=== PATIENT | female | born 1965 | race African-American/Black ===

== ENCOUNTER 2024-12-07 06:15 | Inpatient (IN) | payer BC, SELFPAY ==
[2024-12-06 23:47] VITALS: BP 163/95
[2024-12-07] VITALS (27 sets, daily range): BP systolic 97–151; BP diastolic 30–109; BMI 34.5
[2024-12-07] MEDS: TORADOL 15 MG IV (00:04)
[2024-12-07] MEDS: ZOFRAN 4 MG IV (00:04)
[2024-12-07 00:30] LABS: ALT (SGPT) 20 U/L (0-35); AST (SGOT) 24 U/L (14-36); Albumin 4.6 g/dl (3.5-5.0); Alkaline Phosphatase 87 U/L (38-126); Blood Urea Nitrogen 14 mg/dl (7-17); Calcium 9.6 mg/dl (8.4-10.2); Carbon Dioxide 30 mmol/L (22-30); Glucose 123 mg/dl (70-99); Potassium 3.2 mmol/L (3.5-5.1); Sodium 138 mmol/L (135-145); Total Bilirubin 1.2 mg/dl (0.2-1.3); Total Protein 7.7 g/dl (6.3-8.2); eGFR > 60.00
[2024-12-07 00:32] LABS: Hematocrit 37.4 % (37.0-47.0); Hemoglobin 12.3 g/dL (12.0-16.0); Mean Corp Hgb Conc. 32.9 g/dL (33.0-37.0); Mean Corpuscular Hgb 30.5 pg (27.0-31.0); Mean Corpuscular Volume 92.8 fL (81.0-99.0); Mean Platelet Volume 11.5 fL (7.4-10.4); Platelet Count 200 10^3/uL (130-400); Red Blood Cell Count 4.03 10^6/uL (4.20-5.40); Red Cell Dist. Width 12.2 % (11.5-14.5); White Blood Cell Count 5.1 10^3/uL (4.8-10.8)
[2024-12-07 00:34] LABS: Troponin I < 0.012 ng/ml
[2024-12-07 00:35] LABS: Chloride 101 mmol/L (98-107)
--- NOTE | 2024-12-07 02:39 | DOWNTIME ---
There was a [facility] Client [employer] Clerk Downtime on 12/07/2024 from 0100 to 12/07/2023 at 0235 . Downtime documentation of patient's care, including medication administrations, has been reconciled in the electronic record per guidelines. Refer to the
patient's paper chart under the miscellaneous tab to see printed paper medication records and downtime forms.
--- NOTE | 2024-12-07 02:50 | ED.GENMED ---
History of Present Illness
General
Chief Complaint: Chest Pain
Time Seen by Provider: 12/07/24 02:39
History of Present Illness
History of Present Illness:
Patient is a 59-year-old with history of hypertension presenting to the emergency department chest pain.� Patient states the pain started around 11 PM when she was driving to work.� It is midsternal/epigastric that she describes as a cramping
sensation.� He is having some nausea and a mild headache.� The headache did so earlier today.� No diarrhea.� No sick contacts.� No exertional chest pain.� No shortness of breath.� No leg swelling or hemoptysis.� This is never happened to her before.
Phy Exam
Physical Exam
Physical Exam:
GENERAL: in no acute distress
HEENT: normocephalic, extraocular movements intact, moist oral mucosa
NECK: normal inspection
RESPIRATORY: no respiratory distress, clear to auscultation bilaterally
CARDIOVASCULAR: regular rate and rhythm, 2+ radial pulses bilaterally, reproducible midsternal chest wall tenderness
ABDOMEN/: soft, non-distended, non-tender to palpation, no rebound or guarding
EXTREMITIES: non-tender, no edema/swelling
NEUROLOGIC: awake and alert, moves all extremities
SKIN: warm
Scores
Heart Score for Chest Pain Patients
STEMI patient?: Not applicable
Course
Orders/Labs/Results
Orders:
Orders
12/06/24 23:45
EKG [Electrocardiogram (*1)] Urgent
Reason for Study: Chest Pain
EKG- Treatment ONCE
Complete Blood Count/No Diff Urgent
Comprehensive Metabolic Panel Urgent
Troponin I Urgent
12/07/24 00:01
Ketorolac [Toradol] 15 mg .ROUTE .STK-MED ONE
Ondansetron Injectable [Zofran] 4 mg .ROUTE .STK-MED ONE
12/07/24 00:02
Chest [CR Chest - 2 Views ] Urgent
Comment:
Reason For Exam: cp
12/07/24 00:04
Ketorolac [Toradol] 15 mg IV NOW STA
Ondansetron Injectable [Zofran] 4 mg IV NOW STA
12/07/24 02:11
Phenobarb/Hyoscy/Atropine/Scop [] 10 ml .ROUTE .STK-MED ONE
12/07/24 02:12
Mag Hydrox/Al Hydrox/Simeth [Maalox] 30 ml .ROUTE .STK-MED ONE
12/07/24 02:14
Viscous Lidocaine 2% [Xylocaine Viscous Cup] 15 ml .ROUTE .STK-MED ONE
12/07/24 02:40
EKG- Treatment ONCE
12/07/24 03:00
Electrocardiogram (*1) Urgent
Reason for Study: Chest Pain
Troponin I Urgent
12/07/24 03:15
Troponin I Urgent
Abnormal Lab Results
12/07/24
00:05
RBC 4.03 L 10^6/uL
(4.20-5.40)
MCHC 32.9 L g/dL
(33.0-37.0)
MPV 11.5 H fL
(7.4-10.4)
Potassium 3.2 L mmol/L
(3.5-5.1)
Glucose 123 H mg/dl
(70-99)
12/07/24 00:05
12/07/24 00:05
Vital Signs
Initial and Last Documented VS:
Initial Vital Signs
Temp Pulse BP Pulse Ox
97.6 F 58 163/95 100
12/06/24 23:47 12/06/24 23:47 12/06/24 23:47 12/06/24 23:47
Last Documented Vital Signs
Temp Pulse Resp BP Pulse Ox
97.6 F 66 16 137/80 96
12/06/24 23:47 12/07/24 02:41 12/07/24 02:41 12/07/24 02:41 12/07/24 02:41
MDM/Problems Addressed
Differential Diagnosis Includes:
59-year-old woman presenting to the emergency department with chest pain.� Vitals unremarkable and on exam she does have reproducible chest wall tenderness.� Differential is broad but consists of costochondritis versus esophagitis versus atypical
ACS though less likely.� Initial blood work obtained prior to evaluation is unremarkable.� Will obtain delta troponin.� Will give patient GI cocktail.� She did receive Toradol and Zofran.� Will reevaluate for improvement of symptoms.
*Critical Care Note
Total Time (30-74mins, 75-104mins- exclusive of procedures): Not Applicable
Update Note
Update Note:
On reevaluation patient is asleep resting comfortably. Pain has improved. Pending delta troponin. If remains negative can be discharged with outpatient follow-up.
ED Attending Note
-
Portions of this chart may have been created with voice recognition software.� Occasional wrong word or��sound alike� substitutions may have occurred due to the inherent limitations of voice recognition software.
Discharge Plan
Departure
Patient with high blood pressure during this ER visit?: No
Discharge Problem:
Chest pain
Instructions: Chest Pain PCP Follow Up
Referrals:
Jennifer Nur MD [Family Provider] -
Activity Restrictions/Additional Instructions:
You were evaluated in the Emergency Department today for chest pain. Your evaluation has shown no signs of medical conditions requiring emergent intervention at this time, however we recommend that you follow up with your primary care physician or
your java grails developer as soon as possible for further testing as an outpatient.
Please schedule an appointment for follow up with your primary care physician as soon as possible.
Return to the Emergency Department if you experience worsening or uncontrolled chest pain, shortness of breath, light headedness, feeling faint, nausea, vomiting, or any other concerning symptoms.
Thank you for choosing us for your care.
Interventions
Interventions:
*Risk Screen - Suicide Last Done: 12/06/24 23:47
*General Assessment Last Done: 12/06/24 23:47
*Neglect/Abuse Screening Last Done: 12/06/24 23:47
ED- Fall Risk Assessment Last Done: 12/07/24 02:44
*ED COVID-19 Vaccine History Last Done: 12/06/24 23:47
ED- Cardiac Assessment Last Done: 12/07/24 00:14
Discharge Date and Time
Print Language: MALTESE
--- NOTE | 2024-12-07 04:29 | ED.GENMED ---
History of Present Illness
General
Chief Complaint: Chest Pain
Source: patient and family
Time Seen by Provider: 12/07/24 02:39
History of Present Illness
History of Present Illness:
see Dr Mendoza note
Phy Exam
Physical Exam
Physical Exam:
see Dr Mendoza note
Scores
Heart Score for Chest Pain Patients
STEMI patient?: No
History: Highly Suspicious
ECG: Normal
Age: >45 - <65 years
Risk Factors: 1 or 2 Risk Factors
Troponin: </= Normal Limit
Heart Score for Chest Pain Patients: 4
Heart Score Risk: 20.3% MACE over next 6 weeks
Course
Orders/Labs/Results
Orders:
Orders
12/06/24 23:45
EKG [Electrocardiogram (*1)] Urgent
Reason for Study: Chest Pain
EKG- Treatment ONCE
Complete Blood Count/No Diff Urgent
Comprehensive Metabolic Panel Urgent
Troponin I Urgent
12/07/24 00:01
Ketorolac [Toradol] 15 mg .ROUTE .STK-MED ONE
Ondansetron Injectable [Zofran] 4 mg .ROUTE .STK-MED ONE
12/07/24 00:02
Chest [CR Chest - 2 Views ] Urgent
Comment:
Reason For Exam: cp
12/07/24 00:04
Ketorolac [Toradol] 15 mg IV NOW STA
Ondansetron Injectable [Zofran] 4 mg IV NOW STA
12/07/24 02:11
Phenobarb/Hyoscy/Atropine/Scop [] 10 ml .ROUTE .STK-MED ONE
12/07/24 02:12
Mag Hydrox/Al Hydrox/Simeth [Maalox] 30 ml .ROUTE .STK-MED ONE
12/07/24 02:14
Viscous Lidocaine 2% [Xylocaine Viscous Cup] 15 ml .ROUTE .STK-MED ONE
12/07/24 02:40
EKG- Treatment ONCE
12/07/24 03:00
Electrocardiogram (*1) Urgent
Reason for Study: Chest Pain
12/07/24 03:30
Troponin I Urgent
12/07/24 04:26
EKG- Treatment ONCE
12/07/24 04:34
Heparin 4,000 units IV NOW STA
12/07/24 04:40
PTT Urgent
Comment: Obtain baseline before beginning heparin infusion if not already collected
12/07/24 04:45
Heparin 45135 Units/250 ml 25,000 units in 250 ml IV PER PROTOCOL
Weight to be used for heparin protocol in kilograms (kg):: 103
Protocol:: Cardiac Tx/Acute Coronary
PTT Goal Range to be used:: PTT 73 to 111 seconds
Order type:: Initial
INITIAL Infusion Dose (UNITS/KG/hr) & then follow protocol:: 15 units/kg/hr
Infusion Dose in UNITS/hr & then follow protocol (UNITS/hr):: 1,500
INFUSION RATE in mL/hr & then follow protocol (mL/hr):: 15
PTT less than or equal to 64 seconds:: Increase rate by 200 units/hr (+ 2 mL/hr)
PTT 64.1 to 72.9 seconds:: Increase rate by 100 units/hr (+ 1 mL/hr)
PTT 73 to 111 seconds:: Target Range. No change in rate.
PTT 111.1 to 130.9 seconds:: Decrease rate by 100 units/hr (- 1 mL/hr)
PTT 131 to 199.9 seconds:: HOLD for 1 hr. Then decrease rate by 200 units/hr (- 2 mL/hr)
PTT greater than or equal to 200 seconds:: HOLD for 2 hrs & Notify Provider. Then decrease by 200 units/hr (-
2 mL/hr)
Lab follow-up:: Each change, PTT q6h until 2 consecutive are therapeutic. Then PTT
daily.
12/07/24 05:00
Flush (0.9% Sodium Chloride) [Flush (Nss)] See Dose Instructions IV PER PROTOCOL
12/07/24 05:20
Potassium Chloride [KCl] 40 meq PO NOW STA
12/07/24 05:28
Admit/Transfer Patient As Directed
Co-Sign Provider:
Level of Care: Inpatient admission
Assign to:: IVU
Physician / Group: hospitalist
Diagnosis: NSTEMI
Reason for Hospitalization: NSTEMI
Expected length of stay greater than two midnights?: Yes
ELOS- Estimated Length of Stay in days: 2
I certify the patient meets the requirements for IP care: Yes
PRN Pain Medication Management As Directed
May give lesser potent ordered pain med per pt: Yes
preference::
Protocol:: Medication orders for pain may be administered in a
manner that supports deferring to patient preference
when the pt is:
- Requesting an ordered lesser potent pain medication.
Least to most potent pain medications are defined
as: acetaminophen < NSAID < tramadol < opioids
(morphine, oxycodone, hydromorphone).
- Requesting a lesser dose of the same medication IF
ORDERED.
- Requesting a less intrusive route of administration
if both routes are prescribed by the provider (PO <
IV).
12/07/24 05:29
Code Status As Directed
Resuscitation Status: Full Code
12/07/24 06:15
Aspirin 325 mg PO NOW STA
12/07/24 07:19
Echo 2D MMode Color/Doppler Routine
Reason for Study: chest pain
Consult Notification Routine
Specialty to Notify: Cardiology
Date consulting provider notified: 12/07/24
Time consulting provider notified: 14:54
Notified:: Provider
12/07/24 11:14
Electrocardiogram (*1) Q6H
Reason for Study: Chest Pain
Comment: at admission and Q3H for total of 3, to be done with each troponin
Acetaminophen [Tylenol] 650 mg PO Q4HPRN PRN
Amlodipine [Norvasc] 10 mg PO DAILY
Atenolol [Tenormin] 50 mg PO Q12
Hydrochlorothiazide [Oretic] 25 mg PO DAILY
Lisinopril [Zestril] 20 mg PO DAILY
Mag Hydrox/Al Hydrox/Simeth [Maalox] 30 ml PO Q4HPRN PRN
Nitroglycerin Sublingual [Nitrostat (Sublingual)] 0.4 mg SL [id number] PRN
Ondansetron Injectable [Zofran] 4 mg IV Q6HPRN PRN
12/07/24 11:14
CARDIOLOGY CONSULT Routine
Consulting Provider: Jerald Deluca
Was physician already notified: No
Reason for consult: NSTEMI, trop 0.012 -> 11.
VTE Contraindication Routine
VTE Mechanical Device Contraindication: Medical Contraindication
Pharmocologic Contraindication: Medical Contraindication
Activity As Directed
Activity Level: With Assistance
INT (Intravenous Needle Therapy) As Directed
Comment: maintain peripheral IV access
Intake/ Output As Directed
Frequency: Per unit guidelines
Vital Signs As Directed
Frequency: q4h
Weight As Directed
Frequency: Once
Pulse Ox/spot Check [RESP] Routine
Quantity: 1
Special Instructions: on admission and then every shift if on oxygen
Pt Eval And Treat Routine
Activity Level: With Assistance
12/07/24 11:16
PTT Urgent
Comment: Heparin gtt
Troponin I Q3H
Comment: at admit & Q3H for 3 total including ED draws, obtain ECG with each level
12/07/24 15:14
Troponin I Q3H
Comment: at admit & Q3H for 3 total including ED draws, obtain ECG with each level
12/08/24 02:31
Basic Metabolic Panel IN AM
Cardiovascular Evaluation IN AM
Glycohemoglobin (HgbA1c) IN AM
Abnormal Lab Results
12/07/24 12/07/24
00:05 03:30
RBC 4.03 L 10^6/uL
(4.20-5.40)
MCHC 32.9 L g/dL
(33.0-37.0)
MPV 11.5 H fL
(7.4-10.4)
Potassium 3.2 L mmol/L
(3.5-5.1)
Glucose 123 H mg/dl
(70-99)
Troponin I 11.200 H* D ng/ml
12/07/24 00:05
12/07/24 00:05
Vital Signs
Initial and Last Documented VS:
Initial Vital Signs
Temp Pulse BP Pulse Ox
97.6 F 58 163/95 100
12/06/24 23:47 12/06/24 23:47 12/06/24 23:47 12/06/24 23:47
Last Documented Vital Signs
Temp Pulse Resp BP Pulse Ox
98.3 F 75 18 105/58 100
12/08/24 23:12 12/08/24 23:09 12/08/24 23:12 12/08/24 23:09 12/08/24 23:12
*Critical Care Note
Total Time (30-74mins, 75-104mins- exclusive of procedures): 30
comment:
Critical care statement: A total of 30 minutes of critical care time was provided for this patient. This time is separate from time utilized to perform the aforementioned documented procedures. Aggregate critical care time includes only time
during which I was engaged in work directly related to the patient's care, as described above, whether at the bedside or elsewhere in the Emergency Department.
ED Attending Note
ED Attending Note
Patient seen and examined by attending physician: Yes
ED Attending Note:
59-year-old female presents the emergency department with chest pain. Chest pain started around 11 PM when driving to work. Patient states that the chest pain has resolved while in the emergency department. Second troponin elevated. It is now
11.2. Patient denies any chest pain shortness of breath chest pressure or any other anginal equivalents at this time. Patient to be admitted to the hospitalist service. Heparin to be started.
-
Portions of this chart may have been created with voice recognition software.� Occasional wrong word or��sound alike� substitutions may have occurred due to the inherent limitations of voice recognition software.
Discharge Plan
Departure
Patient Disposition: Admit
Date of Disposition: 12/07/24
Time of Disposition: 04:32
Presentation/result/management discussed w/ accepting MD/DO: Hospitalist
Patient with high blood pressure during this ER visit?: No
Discharge Problem:
Chest pain
Interventions
Interventions:
*Risk Screen - Suicide Last Done: 12/07/24 15:08
*General Assessment Last Done: 12/06/24 23:47
*Neglect/Abuse Screening Last Done: 12/06/24 23:47
ED- Fall Risk Assessment Last Done: 12/07/24 02:44
*ED COVID-19 Vaccine History Last Done: 12/06/24 23:47
*Nursing Disposition Last Done: 12/07/24 12:45
ED- Cardiac Assessment Last Done: 12/07/24 07:21
Discharge Date and Time
Discharge Date/Time: 12/07/24 12:50
[2024-12-07] MEDS: HEPARIN 4000 UNITS IV (04:53)
[2024-12-07] MEDS: HEPARIN 25000 UNITS/250 ML IV (04:54)
--- NOTE | 2024-12-07 05:21 | HPS.HSE ---
Family Physician
-
Family Physician: Jennifer Nur MD
Chief Complaint
-
Chest pain
History of Present Illness
Is a 59-year-old with past medical history of hypertension, hyperlipidemia presenting to the emergency department with episode of chest pain.
Patient reports onset of chest pain while driving to walk about an hour prior to arriving in the emergency department. She reports that left-sided and substernal chest pain that was squeezing in sensation and radiating to the left arm. She reports
nausea. She denies shortness of breath. She denies diaphoresis. The pain was not associated with exertion but was persistent and waxing and waning. While at work she felt nausea and worsening pain so EMS was called and patient was brought to the
emergency department.
Patient denies prior history of coronary artery disease. She denies dyspnea on exertion or over prior exertional chest pain. She denies any ankle edema. She denies palpitations lightheadedness or dizziness.
On arrival in the emergency department she was normal tensive with a blood pressure of 120/80 pulse of 69 and satting 98% on room air. ECG showed a normal sinus rhythm at a rate of 65. Initial troponin was negative at 0.012, second troponin 2
hours later was 11.2.
CBC was unremarkable. Electrolytes BUN/creatinine notable for potassium of 3.2 but otherwise unremarkable. Chest x-ray was clear
Medical History
Past Medical History
Past Medical History: Reports GERD, HTN and Hypercholesterolemia
Past Surgical History: Reports Other (Removal of back cyst, uterine fibroid removal)
Social History
Tobacco: Non-smoker
Alcohol: None
Drug: None
Personal:
Living: With Family
Employment: Employed
Family History
Family History: Cancer (Mother with history of breast cancer)
Allergies / Home Medications
Allergies reflects when Allergies were last updated in [facility].
Home Medications with original date entered in [facility]
Allergy/Medication List:
Allergies
Allergy/AdvReac Type Severity Reaction Status Date / Time
nifedipine Allergy Swelling Verified 12/06/24 23:57
Atenolol 100 mg tablet, 100 mg p.o. daily
Lisinopril 40 mg tablet, 40 mg p.o. daily
Amlodipine 10 mg tablet, 10 mg p.o. daily
Hydrochlorothiazide 25 mg tablet, 25 mg p.o. daily
Review of Systems
-
History Source: Patient
Constitutional: Reports No Symptoms
EENT: Reports No Symptoms
Respiratory: Reports No Symptoms
Cardiac: Reports Chest Pain
Abdomen/GI: Reports No Symptoms
: Reports No Symptoms
Musculoskeletal: Reports No Symptoms
Skin: Reports No Symptoms
Neurological: Reports No Symptoms
Endocrine: Reports No Symptoms
Hematologic/Lymphatic: Reports No Symptoms
Psych: Reports No Symptoms
Physical Exam
Vital Signs
Vital Signs
Temp Pulse Resp BP Pulse Ox
97.6 F 69 18 119/80 95
12/06/24 23:47 12/07/24 04:30 12/07/24 04:30 12/07/24 04:00 12/07/24 04:30
Physical Exam
General: Well Developed, Well Nourished, Comfortable and Conversant
HEENT: NormoCephalic, Anicteric, Moist mucous membranes and Atraumatic
Respiratory: Clear
Cardiac: S1/S2 and Regular Rhythm
Breast: Deferred by me
GI: Soft, Non Tender, Non Distended and Normal Bowel Sounds
Rectal: Deferred by Provider
Genito-urinary: Deferred by me
Musculoskeletal: No Clubbing, No Cyanosis and No Edema
Skin: Warm
Neuro: AO x 3 and Nonfocal/grossly intact
Hematologic/Lymphatic: No Lymphadenopathy
Psych: Calm
Laboratory Results
-
12/07/24 00:05
12/07/24 00:05
Laboratory Results
Total Bilirubin 1.2 mg/dl (0.2-1.3) 12/07/24 00:05
AST 24 U/L (14-36) 12/07/24 00:05
ALT 20 U/L (0-35) 12/07/24 00:05
Alkaline Phosphatase 87 U/L (38-126) 12/07/24 00:05
Troponin I 11.200 ng/ml H* D 12/07/24 03:30
Data Reviewed
-
Diagnostic Radiology: Image Personally Visualized and interpreted
Medical Tests (Nuc Med, Echo, EKG etc): Image Personally Visualized and interpreted
Lab Data: Labs Reviewed by me
Old Records: Reviewed
Impression/Plan
-
IMPRESSION:
59-year-old postmenopausal with history of hypertension, hyperlipidemia, obesity and GERD presenting to the emergency department with persistent waxing and waning substernal and left-sided chest pain lasting several minutes prior to arrival in the
emergency department, ECG is negative, found to have initial negative troponin but repeat troponin 2 hours later was elevated at 11.0. Chest x-ray was clear. Labs are otherwise unremarkable.
PLAN:
NSTEMI -typical chest pain, has significant risk factors and elevated troponin
-admit to ivu
- cycle enzymes
- started on heparin gtt
- aspirin 325 x 1, then 81 daily
- gi ppx with protonix for now
- nitroglycerin prn
- hd stable, will continue her home lisinopril, hctz, atenolol and amlodipine with hold parameters
- echo, a1c in am
- cardiology consult
Code status - Full Code
[2024-12-07] MEDS: KCL 40 MEQ PO (05:26)
[2024-12-07 05:45] LABS: APTT 32.4 Sec (23.4-35.0)
[2024-12-07] MEDS: ASPIRIN 325 MG PO (06:34)
--- NOTE | 2024-12-07 08:22 | CON.CAR ---
Consultation
Consultation Request
Date/Time Consultation Requested: 12/07/2024; 07:19
Date/Time Consultation Performed: 12/07/2024; 07:20
Requesting Provider: Zeinab Griffin M.D.
Performing Provider: Raghav Park D.O.
Reason for Consultation: NSTEMI
Medical History
-
Chief Complaint: Chest pain.
History of Present Illness:
59 y/o female with HTN, HLD and FMG admitted with chest pain lasting 1-2 hours. The patient was in her normal state of health and presenting to work at [employer] when she developed substernal chest 'cramping'. She admitted to some nausea but denies
shortness in breath, palpitations, syncope or presyncope. She reported to the nurse at [employer] who performed vitals and a brief exam. EMS was called and the patient was brought to ER. In the ER, the patient's chest pain resolved. EKG was
non-ischemic. Her initial troponin was < 0.012, but then [place] to 11.2 after 3 hours. She was given ASA 325 and started on a heparin gtt. K+ was repleated.
On interview, the patient is now chest pain free. She denies any previous episodes. Repeat EKG remains non-ischemic.
Past Medical History
Past Medical History: HTN, Hypercholesterolemia and Other (Fibromyalgia)
Past Surgical History: None
Social History
Tobacco: Non-Smoker
Alcohol: None
Drug: None
Employment: Employed
Family History
Family History: Reviewed & Not Pertinent
Allergies / Home Medications
Allergy/AdvReac Type Severity Reaction Status Date / Time
nifedipine Allergy Swelling Verified 12/06/24 23:57
�Medication �Instructions �Recorded �Confirmed �Type
acetaminophen 500 mg tablet 1,000 mg PO Q6H PRN mild pain 12/07/24 12/07/24 History
amlodipine 5 mg tablet 5 mg PO DAILY 12/07/24 12/07/24 History
atenolol 100 mg tablet 100 mg PO DAILY 12/07/24 12/07/24 History
atorvastatin 80 mg tablet 80 mg PO QPM 12/07/24 12/07/24 History
hydrochlorothiazide 25 mg tablet 25 mg PO DAILY 12/07/24 12/07/24 History
ibuprofen 800 mg tablet 800 mg PO DAILYPRN PRN mild pain 12/07/24 12/07/24 History
lisinopril 40 mg tablet 40 mg PO DAILY 12/07/24 12/07/24 History
Review of Systems
-
History Source: Patient
All other systems: Negative unless noted
Constitutional: No Symptoms
EENT: No Symptoms
Respiratory: No Symptoms
Cardiac: Chest Pain
Abdomen/GI: Nausea
: No Symptoms
Musculoskeletal: No Symptoms
Skin: No Symptoms
Neurological: No Symptoms
Endocrine: No Symptoms
Hematologic/Lymphatic: No Symptoms
Physical Exam
Vital Signs
Temp Pulse Resp BP Pulse Ox
36.4 C 60 18 121/82 99
12/06/24 23:47 12/07/24 07:15 12/07/24 07:15 12/07/24 06:00 12/07/24 07:22
Lab Results
12/07/24 00:05
12/07/24 00:05
Troponin I 11.200 ng/ml H* D 12/07/24 03:30
Physical Exam
General: Well Nourished, No Apparent Distress and Comfortable
HEENT: Normocephalic, Anicteric and Moist Mucous Membranes
Respiratory: Clear and Non Labored Respirations
Cardiac: S1/S2 and Regular Rhythm
Breast: Deferred by me
GI: Non Tender, Non Distended and Normal Bowel Sounds
Rectal: Deferred by Provider
Musculoskeletal: No Clubbing, No Cyanosis and No Edema
Skin: Warm and Dry
Neuro: AO x 3
Hematologic/Lymphatic: No Lymphadenopathy
Psych: Calm
Impression / Plan
-
Impression/Plan: 59 y/o female with HTN, HLD and FMG admitted with NSTEMI.
#NSTEMI
-Acute, threat to life.
-Echocardiogram ordered and pending.
-Continue current medical management with aspirin, heparin gtt.
-Hold DAPT for the moment.
-I discussed an early invasive strategy, including cardiac catheterization with ad hoc PCI. The patient was unsure and wanted to discuss with her daughter.
#HTN
-Chronic, stable.
-BP currently controlled, but appears to have resistant hypertension.
-She will likely require her home medications shortly.
#HLD
-Chronic, stable.
-Check fasting lipid panel.
-Continue atorvastatin 80 mg daily.
-Goal LDL < 55.
#Dispo
-Admitted to IVU under internal medicine.
-Full code.
Data Reviewed
-
EKG: Tracing Personally Visualized and interpreted, Report Reviewed by me and Discussed with Patient
Radiology: Image Personally Visualized and interpreted and Report Reviewed by me
Labs: Labs Reviewed by me and Discussed with Patient
[2024-12-07 12:03] LABS: APTT 137.6 Sec (23.4-35.0)
[2024-12-07] MEDS: ORETIC 25 MG PO (12:19)
[2024-12-07] MEDS: NORVASC 10 MG PO (12:21)
[2024-12-07] MEDS: TENORMIN PO (12:26)
[2024-12-07] MEDS: ZESTRIL PO (12:26)
--- NOTE | 2024-12-07 13:10 | W.PN.HOSP.TC ---
Addendum entered and electronically signed by Raghav Stuart DO 12/08/24 13:03:
CDI: Hypokalemia
Original Note:
Today's Communication/Plan
-
Plan for [facility]
Continue amiodarone drip
Continue beta-maria luisa, ACEi, statin
Telemetry
Echo
Assessment / Plan
Assessment / Plan
#NSTEMI
-Differentials include occlusive NC versus MINOCA (stress-induced, etc...)
-Presented with typical chest pain, troponin delta 11.2; nonischemic ECG
-Underlying risk factors include obesity, dyslipidemia, and hypertensive history
-Received full dose aspirin upon arrival, then started on heparin drip
-Cardiology evaluated, preference for early invasive strategy; patient unsure
-Remains hemodynamically stable; [place] score 2
Plan
-Continue heparin pending [facility] with angiography
-Continue beta-maria luisa, ACEi, and high intensity statin
-Plan for DAPT if stent placement, 1 year
-Follow-up TTE
-Telemetry
#HTN
-Home regimen includes atenolol and amlodipine
-Per cardiology documentation, has history of resistant hypertension
-Blood pressure fairly well-controlled here despite pain
-Continue home regimen and monitor
-Follow-up TTE for signs of hypertensive heart disease
#HLD
-Home regimen includes atorvastatin 80 mg nightly
-No known ASCVD history but is on highest dose statin
-Order FLP and A1c for tomorrow morning
-LDL goal < 70
#Obesity
-BMI 34.5
-Encourage 30 minutes of aerobic exercise as tolerated daily
-Encourage Mediterranean style diet
DVT prophylaxis: Heparin drip
Diet: N.p.o. for now pending [facility]
CODE STATUS: Full code
Anticipated Discharge: 24 - 48 hours
Subjective/Interval History
-
Date of Service: December 07, 2024
Seen and examined at the bedside in the ED. No further acute events overnight. AFVSS this morning
Troponin has up trended from 11.2 - 29.3. Remains without ischemic ECG changes, pain-free as of this morning
Denies any new complaints. Currently making decision on if she wants early coronary intervention, to discuss with her daughter
Objective Data
-
Labs:
Laboratory Results
12/07/24 12/07/24
04:40 11:16
APTT 32.4 137.6 H
Vital Signs:
Vital Signs
Temp Pulse Resp BP Pulse Ox
97.6 F 71 15 141/84 94
12/06/24 23:47 12/07/24 12:45 12/07/24 12:45 12/07/24 12:21 12/07/24 12:30
Review of Systems
-
History Source: Patient
All other systems: Reviewed and negative
Physical Exam
-
General: Well Developed, No Apparent Distress, Comfortable and Morbidly Obese
HEENT: Normocephalic, Atraumatic and Moist Mucous Membranes
Respiratory: Clear to Auscultation and Non Labored Respirations
Cardiac: Regular Rhythm and S1/S2; Negative Murmur, Rub, JVD or Gallop
GI: Soft, Nontender, Nondistended and Normal Bowel Sounds
Musculoskeletal: No Clubbing, No Cyanosis and No Edema
Skin: Warm, Dry and Normal Turgor; Negative Rash
Neuro: AO x 3 and Nonfocal/Grossly Intact; Negative Tremors
Psych: Calm
Data Reviewed
-
Labs: Labs Reviewed by me and Discussed with Patient
--- NOTE | 2024-12-07 13:42 | ITS.CL.CATH ---
Crime Investigator Special Agent - Catheterization
Cardiac Catheterization
Procedure Report:
CARDIAC CATHETERIZATION REPORT
Date of Procedure: 12/07/2024
Referring: Zeinab Griffin M.D.
INDICATION: Non-ST elevation myocardial infarction.
PROCEDURE:
1. Left heart catheterization.
2. Coronary angiography.
3. Left ventriculography.
A total of 16 minutes of procedural/moderate sedation was utilized. An independent medical billing assistant was present to assist with and help manage the patient's level of consciousness and physiologic status.
ACCESS:
1. 6 Brazilian right rate artery using a modified Seldinger technique.
CATHETERS:
1. 5 Brazilian JR4.
2. 5 Brazilian JL 3.5.
3. 6 Brazilian angled pigtail.
HEMODYNAMIC DATA
Weight (kg): 103.0
AO (s/d/x, mmHg): 126/87/104
LV (s/x mmHg): 126/15
LEFT VENTRICULOGRAPHY: Performed in an HOP[place]INS projection. Normal left ventricular size. There is hypokinesis of the lateral wall with preserved global systolic function. Left ventricular ejection fraction estimated at 65%. There is no mitral valve
regurgitation. There is no aortic valve insufficiency. The aortic root and visualized ascending and descending aorta appear normal.
CORONARY ANGIOGRAPHY
Dominance: Right.
Left Main: Large size, bifurcating vessel. There is no coronary artery disease.
LAD: Large size vessel giving rise to 2 significant diagonals before wrapping around the apex. There is moderate to severe tortuosity of the apical LAD. There is no coronary artery disease.
Ramus: Congenitally absent.
Circumflex: Normal size, nondominant vessel giving rise to 1 large obtuse marginal. Both the AV groove circumflex and the obtuse marginal are severely tortuous. There is no coronary artery disease.
RCA: Normal size, dominant vessel with an anterior origin. There is moderate tortuosity of the mid vessel. There is no coronary artery disease.
INTERVENTION(S)
None.
Closure Device: Vascular band.
Radiation (mGy): 409.43
DAP (cm2.Gy): 37.8677
Fluoroscopy time (minutes): 3.3
CONCLUSIONS
1. Right dominant circulation with tortuosity of the mid RCA as well as the distal LAD and the entire circumflex system with no coronary artery disease.
2. Normal left ventricular size with hypokinesis of the lateral wall on left ventriculography but preserved global systolic function. Left ventricular ejection fraction estimated at 65%.
3. Normal filling pressures (LVEDP = 15 mmHg at 1 to 3.0 kg).
4. Focal hypokinesis combined with significant troponin elevation raises the possibility of focal myocarditis.
RECOMMENDATIONS:
1. Expectant management after cardiac catheterization via right radial approach.
2. Limited weight bearing on the right wrist for one week.
3. GDMT as hemodynamics will tolerate.
4. Cardiac MRI to evaluate for focal myocarditis, possible infiltrative disease.
Copy to: Zeinab Griffin M.D., Zee Nur M.D.
Raghav Park DO, FACC, FACP
--- NOTE | 2024-12-07 14:00 | PTCARENOTE ---
Received the patient from the cardiac catheterization technologist in her bed. The patient is aaox3, vitals are stable, 98% on RA. Sinus amanda with a prolong Qt is noted on the monitor. Her right wrist R-band is intact. A positive right radial pulse is noted. I instructed the
patent on her activity restrictions. Call noland is within reach.
[2024-12-07] MEDS: NSS 1000 IV (14:52)
--- NOTE | 2024-12-07 16:40 | CM ---
CM following for DC planning needs.
Met w/ patient at bedside to complete initial assessment.
Pt. resides in a private, 1 st home w/ spouse. Pt. is functionally indep. at baseline w/ ADLs, mobility without the use of any assisted device.
Pt. works at [employer].
Pt. has RX plan and uses [facility] for prescription needs.
Antic. DC plan is for home, no needs.
Will follow.
[2024-12-07] MEDS: LIPITOR 80 MG PO (17:09)
[2024-12-07] MEDS: TENORMIN 50 MG PO (20:03)
--- NOTE | 2024-12-07 23:21 | PTCARENOTE ---
Received patient at change of shift. SR on the monitor, HR in the 70s. R radial dressing CDI, radial pulses positive. No complaints from pt at this time, call noland within reach.
[2024-12-08] VITALS (8 sets, daily range): BP systolic 105–135; BP diastolic 58–92; PULSE 56; O2SAT 98; BMI 33.0
[2024-12-08 03:44] LABS: Hematocrit 38.2 % (37.0-47.0); Hemoglobin 12.5 g/dL (12.0-16.0); Mean Corp Hgb Conc. 32.7 g/dL (33.0-37.0); Mean Corpuscular Hgb 30.5 pg (27.0-31.0); Mean Corpuscular Volume 93.2 fL (81.0-99.0); Mean Platelet Volume 11.7 fL (7.4-10.4); Platelet Count 184 10^3/uL (130-400); Red Cell Dist. Width 12.4 % (11.5-14.5); White Blood Cell Count 3.6 10^3/uL (4.8-10.8)
[2024-12-08 03:46] LABS: Blood Urea Nitrogen 16 mg/dl (7-17); Calcium 9.4 mg/dl (8.4-10.2); Carbon Dioxide 28 mmol/L (22-30); Chloride 102 mmol/L (98-107); Estimated Creatinine Clearance 95 ml/min; Glucose 95 mg/dl (70-99); HDL Cholesterol 41 mg/dl; LDL Cholesterol, Calculated 96 mg/dl; Potassium 3.5 mmol/L (3.5-5.1); Sodium 139 mmol/L (135-145); Total Cholesterol 150 mg/dl (50-199); Triglyceride 65 mg/dl (10-149); Very Low Density Lipoprotein 13 mg/dl (0-30); eGFR > 60.00
--- NOTE | 2024-12-08 07:16 | W.PN.CD ---
Today's Communication / Plan
-
Discontinue atenolol.
Start carvedilol 12.5 mg BID.
cMRI.
Discharge planning.
Impression / Plan
-
Impression/Plan: 59 y/o female with HTN, HLD and FMG admitted with chest pain/troponin elevation.
#Non-ischemic troponin elevation
-Acute.
-Cath shows normal coronary arteries. There is focal lateral hypokinesis on V-Gram.
-Echocardiogram WNL.
-cMRI ordered to assess for focal myocarditis.
-Change atenolol to carvedilol 12.5 mg BID.
-Continue GDMT (primarily used for HTN).
#HTN
-Chronic, stable.
-BP currently controlled.
-Change atenolol to carvedilol 12.5 mg BID and monitor.
#HLD
-Chronic, stable.
-Total cholesterol = 150, LDL = 96, HDL = 41, Triglycerides = 65
-Continue atorvastatin 80 mg daily.
#Dispo
-Admitted to IVU under internal medicine.
-Full code.
Subjective/Interval History:
Cath yesterday shows no CAD.
There is a focal area of lateral hypokinesis on V-Gram, not necessarily appreciated on echo.
Troponin peaked at 29, down to 16.
Chest pain resolved.
DATA:
Cardiac Catheterization, 12/07/2024:
CONCLUSIONS
1. Right dominant circulation with tortuosity of the mid RCA as well as the distal LAD and the entire circumflex system with no coronary artery disease.
2. Normal left ventricular size with hypokinesis of the lateral wall on left ventriculography but preserved global systolic function. Left ventricular ejection fraction estimated at 65%.
3. Normal filling pressures (LVEDP = 15 mmHg at 1 to 3.0 kg).
4. Focal hypokinesis combined with significant troponin elevation raises the possibility of focal myocarditis.
Transthoracic Echocardiogram, 12/07/2024:
CONCLUSIONS
LV ejection fraction is 60-65%. No regional wall motion abnormalities are seen.
Normal right ventricular size and function.
Moderate tricuspid regurgitation. Estimated pulmonary artery pressure of 30-35
mmHg.
No prior study available for comparison.
Physical Exam
Vital Signs/Labs
Vital Signs
Temp Pulse Resp BP Pulse Ox
37.1 C 62 20 117/76 97
12/08/24 07:01 12/08/24 02:25 12/08/24 07:01 12/08/24 02:25 12/08/24 07:01
12/06/24 12/07/24 12/08/24
11:59 11:59 11:59
Actual Weight 103 kg 98.5 kg
12/08/24 02:31
12/08/24 02:31
APTT 137.6 Sec (23.4-35.0) H 12/07/24 11:16
Triglycerides 65 mg/dl (10-149) 12/08/24 02:31
LDL Cholesterol, Calc 96 mg/dl 12/08/24 02:31
VLDL Cholesterol, Calc 13 mg/dl (0-30) 12/08/24 02:31
HDL Cholesterol 41 mg/dl 12/08/24 02:31
LAB Results
12/07/24 12/07/24 12/07/24
00:05 03:00 03:15
Troponin I < 0.012 Cancelled Cancelled
12/07/24 12/07/24 12/07/24
03:30 11:16 15:14
Troponin I 11.200 H* D 29.300 H* D 16.400 H* D
12/07/24
17:14
Troponin I Cancelled
Physical Exam
Constitutional: No acute distress and Comfortable
EENT: Anicteric and Moist mucous membranes
Cardiovascular: Rhythm & rate is regular, Pedal edema is absent, JVD pressure is normal, S1S2 is normal and Murmur/rub/gallop absent
Respiratory: Respiratory effort normal, Lungs clear to auscul., Wheeze Absent, Crackles Absent and Rhonchi Absent
GI: Soft, Distention absent, Flat, Non tender and Normal bowel sounds
Neuro/Psych: AO x 3
Other: Cath Site (Right radial access site is C/D/I.)
Data Reviewed
-
Date of Service: December 08, 2024
Medical Decision Making: Reviewed Test Results, Independent Historian Assessment and Test Interpretation
EKG: Tracing Personally Visualized and interpreted and Report Reviewed by me
Echo: Tracing Personally Visualized and interpreted and Report Reviewed by me
X-Ray/CT/US/MRI/NUC/PET: Image Personally Visualized and interpreted and Report Reviewed by me
Medical Tests (PFT, Pathology etc): Image Personally Visualized and interpreted and Report Reviewed by me
Labs: Labs Reviewed by me
Old Records: Reviewed
[2024-12-08] MEDS: NORVASC 10 MG PO (08:17)
[2024-12-08] MEDS: ORETIC 25 MG PO (08:18)
[2024-12-08] MEDS: TENORMIN 50 MG PO (08:18)
[2024-12-08] MEDS: ZESTRIL 20 MG PO (08:19)
[2024-12-08] MEDS: TYLENOL 650 MG PO ×2 (08:22→13:14)
[2024-12-08 08:43] LABS: % Basophils 0.3 % (0-2); % Immature Granulocytes 0.3 % (0-0.5); % Lymphocytes 55.6 % (20.5-51.1); % Monocytes 6.1 % (1.7-9.3); % Neutrophils 35.7 % (42.2-75.2); Absolute Eosinophils 0.1 10^3/uL (0-0.7); Absolute Monocytes 0.2 10^3/uL (0.1-0.6); Absolute Neutrophils 1.3 10^3/uL (1.4-6.5); Nucleated Red Blood Cells % 0 %
[2024-12-08 09:08] LABS: Glycohemoglobin (HgbA1c) 5.4 % (4.0-5.6)
--- NOTE | 2024-12-08 09:44 | PN.CDI ---
CDI
- -
CDI:
Physician Documentation Request
Admit Date: 12/07/24 06:15
Dear Doctor Xavier,
12/08 Cardiology PN: 'Non-ischemic troponin elevation -Acute. -Cath shows normal coronary arteries. There is focal lateral hypokinesis on V-Gram.'
Laboratory Tests
12/07/24 12/07/24 12/07/24
03:30 11:16 15:14
Troponin I 11.200 H* D 29.300 H* D 16.400 H* D
Please clarify the following regarding the documented troponin elevation:
Non-ischemic myocardial injury
Abnormal lab value only
Other
Use of terms such as suspected, likely, concern for, or probable (associated with a specific diagnosis that is being evaluated, monitored, or treated as if it exists) are acceptable and can be coded in the inpatient setting, when documented at the
time of discharge.
Thank you,
Manisha Tavarez RN, BSN
CDI Specialist
Available via [place] text
Please use your independent medical judgment in providing your response.
--- NOTE | 2024-12-08 09:45 | PTOTSP ---
Patient demonstrates safe and independent mobility, no skilled physical therapy needs.
--- NOTE | 2024-12-08 09:56 | PN.CDI ---
CDI
- -
CDI:
Physician Documentation Request
Admit Date: 12/07/24 06:15
Dear Doctor Xavier,
Patient admitted for troponin elevation.
12/07 Potassium level: 3.2
12/07 Potassium chloride 40 meq PO administered
Based on the above, could you clarify in the progress notes, the appropriate diagnosis, if significant, that supports the above abnormalities and additional evaluation, monitoring and/or treatment rendered:
Hypokalemia
Abnormal lab value insignificant
Other
Use of terms such as suspected, likely, concern for, or probable (associated with a specific diagnosis that is being evaluated, monitored, or treated as if it exists) are acceptable and can be coded in the inpatient setting, when documented at the
time of discharge.
Thank you,
Manisha Tavarez RN, BSN
CDI Specialist
Available via [place] text
Please use your independent medical judgment in providing your response.
--- NOTE | 2024-12-08 10:02 | PN.CDI ---
CDI
- -
CDI:
Physician Documentation Request
Admit Date: 12/07/24 06:15
Dear Doctor Narciso,
Patient admitted for troponin elevation.
12/07 Potassium level: 3.2
12/07 Potassium chloride 40 meq PO administered
Based on the above, could you clarify in the progress notes, the appropriate diagnosis, if significant, that supports the above abnormalities and additional evaluation, monitoring and/or treatment rendered:
Hypokalemia
Abnormal lab value insignificant
Other
Use of terms such as suspected, likely, concern for, or probable (associated with a specific diagnosis that is being evaluated, monitored, or treated as if it exists) are acceptable and can be coded in the inpatient setting, when documented at the
time of discharge.
Thank you,
Manisha Tavarez RN, BSN
CDI Specialist
Available via [place] text
Please use your independent medical judgment in providing your response.
--- NOTE | 2024-12-08 10:10 | W.PN.HOSP.TC ---
Today's Communication/Plan
-
Follow-up cardiac MRI
Extended viral panel, coxsackie virus testing
Consider repeat TTE
Telemetry
Assessment / Plan
Assessment / Plan
#NSTEMI
-Secondary to MINOCA; differentials include focal myocarditis (viral versus immunogenic), microvascular ischemia, less likely vasospasm
-Presented with typical chest pain, troponin delta 11.2; nonischemic ECG; left heart cath on 12/07 without CAD, showed tortuous vessel
-Status post heparin drip; echocardiogram yesterday with preserved LVEF; [facility] with ventriculography did show lateral WMA
-Has remained chest pain-free since shortly after admission, troponin downtrending, telemetry without events
-Remains hemodynamically stable and on room air; pending cardiac MRI today
Plan
-Follow-up cardiac MRI
-Consider extended viral panel for assessment of
-May need to consider endomyocardial biopsy
-Would repeat TTE to assess for worsening WMA
-Continue with home beta-maria luisa and ORAL inhibitor
-Telemetry
#HTN
-Home regimen includes atenolol, HCTZ, and amlodipine
-Per cardiology documentation, has history of resistant hypertension
-Blood pressure fairly well-controlled here
-Continue home regimen and monitor
#HLD
-Home regimen includes atorvastatin 80 mg nightly
-No known ASCVD history but is on highest dose statin
-Order FLP and A1c for tomorrow morning
-LDL near 90; LDL goal < 70
#Obesity
-BMI 34.5
-Encourage 30 minutes of aerobic exercise as tolerated daily
-Encourage Mediterranean style diet
DVT prophylaxis: Lovenox
Diet: Cholesterol-lowering
CODE STATUS: Full code
Anticipated Discharge: > 48 hours
Subjective/Interval History
-
Date of Service: December 08, 2024
Seen and examined at the bedside. No acute events reported overnight. AFVSS this morning
No acute events on telemetry, troponin downtrending. Patient without chest pain or anginal equivalents this morning
Denies any new complaint. Pending cardiac MRI
Objective Data
-
Labs:
Laboratory Results
12/08/24
02:31
WBC 3.6 L
Hgb 12.5
Hct 38.2
Plt Count 184
Sodium 139
Potassium 3.5
Chloride 102
Carbon Dioxide 28
BUN 16
Creatinine 0.8
Glucose 95
Calcium 9.4
Vital Signs:
Vital Signs
Temp Pulse Resp BP Pulse Ox
98.7 F 57 20 135/90 97
12/08/24 07:01 12/08/24 08:17 12/08/24 07:01 12/08/24 08:17 12/08/24 07:01
I&O
12/07/24 12/08/24 12/09/24
06:59 06:59 06:59
Intake Total 1056 / 1056
Balance 1056 / 1056
Review of Systems
-
History Source: Patient
All other systems: Reviewed and negative
Physical Exam
-
General: Well Developed, No Apparent Distress and Obese
HEENT: Normocephalic, Atraumatic and Moist Mucous Membranes
Respiratory: Clear to Auscultation and Non Labored Respirations
Cardiac: Regular Rhythm and S1/S2; Negative Murmur, Rub or Gallop
GI: Soft, Nontender, Nondistended and Normal Bowel Sounds
Musculoskeletal: No Clubbing, No Cyanosis and No Edema
Skin: Warm, Dry and Normal Turgor; Negative Rash
Neuro: AO x 3 and Nonfocal/Grossly Intact
Psych: Calm
Data Reviewed
-
Labs: Labs Reviewed by me and Discussed with Patient
--- NOTE | 2024-12-08 15:37 | PTCARENOTE ---
Pt unable to tolerate full cardiac MRI today. She returned from the MRI with a headache. Dr Stuart and Dr Park aware. She is willing to attempt MRI with an med for anxiety, mild sedation. Dr Park aware, MRI now scheduled for tomorrow morning.
[2024-12-08] MEDS: LOVENOX 40 MG SC (18:51)
[2024-12-08] MEDS: LIPITOR 80 MG PO (18:51)
[2024-12-08] MEDS: COREG 12.5 MG PO (19:47)
--- NOTE | 2024-12-08 23:18 | PTCARENOTE ---
Received patient at change of shift. SR on the monitor, HR in the 70s. R radial ARTIS and intact. No complaints from pt at this time, call noland within reach.
[2024-12-09 04:43] VITALS: BP 115/80
[2024-12-09 05:08] LABS: % Basophils 0.2 % (0-2); % Eosinophils 1.2 % (0-6); % Immature Granulocytes 0.2 % (0-0.5); % Lymphocytes 44.7 % (20.5-51.1); % Monocytes 5.7 % (1.7-9.3); Absolute Eosinophils 0.1 10^3/uL (0-0.7); Absolute Lymphocytes 1.8 10^3/uL (1.2-3.4); Absolute Monocytes 0.2 10^3/uL (0.1-0.6); Absolute Neutrophils 1.9 10^3/uL (1.4-6.5); Hematocrit 36.5 % (37.0-47.0); Hemoglobin 12.4 g/dL (12.0-16.0); Mean Corpuscular Hgb 30.6 pg (27.0-31.0); Mean Corpuscular Volume 90.1 fL (81.0-99.0); Mean Platelet Volume 11.5 fL (7.4-10.4); Nucleated Red Blood Cells % 0 %; Platelet Count 189 10^3/uL (130-400); Red Blood Cell Count 4.05 10^6/uL (4.20-5.40); Red Cell Dist. Width 12.2 % (11.5-14.5)
[2024-12-09 05:40] LABS: Blood Urea Nitrogen 18 mg/dl (7-17); Calcium 9.6 mg/dl (8.4-10.2); Carbon Dioxide 35 mmol/L (22-30); Chloride 100 mmol/L (98-107); Estimated Creatinine Clearance 95 ml/min; Glucose 105 mg/dl (70-99); Potassium 3.5 mmol/L (3.5-5.1); Sodium 138 mmol/L (135-145); eGFR > 60.00
[2024-12-09 07:08] VITALS: BP 121/74
--- NOTE | 2024-12-09 07:18 | W.PN.CD ---
Addendum entered and electronically signed by Raghav Park DO 12/09/24 17:39:
Response to CDI: Troponin elevation is non-ischemic myocardial injury.
Original Note:
Today's Communication / Plan
-
Lorazepam 2 mg PO 30 minutes prior to cMRI.
She is on good medical therapy.
Coxsackie panel pending.
Discharge pending, likely today.
Impression / Plan
-
Impression/Plan: 59 y/o female with HTN, HLD and FMG admitted with chest pain/troponin elevation.
#Non-ischemic troponin elevation
-Acute.
-Cath shows normal coronary arteries. There is focal lateral hypokinesis on V-Gram.
-Echocardiogram WNL.
-Continue carvedilol, lisinopril (at half dose).
-Re-attempt cMRI with lorazepam 2 mg PO 30 minutes prior.
-Coxsackie panel pending.
#HTN
-Chronic, stable.
-BP currently controlled.
-Controlled on carvedilol, lisinopril 20 mg daily, amlodipine 10 mg daily and HCTZ.
#HLD
-Chronic, stable.
-Total cholesterol = 150, LDL = 96, HDL = 41, Triglycerides = 65
-Continue atorvastatin 80 mg daily.
#Dispo
-Admitted to IVU under internal medicine.
-Full code.
-Likely discharge today, barring extreme abnormality on cMRI.
Subjective/Interval History:
Patient could not tolerate cMRI yesterday.
Hospitalist ordered expanded Coxsackie viral panel.
Feels well.
DATA:
Cardiac Catheterization, 12/07/2024:
CONCLUSIONS
1. Right dominant circulation with tortuosity of the mid RCA as well as the distal LAD and the entire circumflex system with no coronary artery disease.
2. Normal left ventricular size with hypokinesis of the lateral wall on left ventriculography but preserved global systolic function. Left ventricular ejection fraction estimated at 65%.
3. Normal filling pressures (LVEDP = 15 mmHg at 1 to 3.0 kg).
4. Focal hypokinesis combined with significant troponin elevation raises the possibility of focal myocarditis.
Transthoracic Echocardiogram, 12/07/2024:
CONCLUSIONS
LV ejection fraction is 60-65%. No regional wall motion abnormalities are seen.
Normal right ventricular size and function.
Moderate tricuspid regurgitation. Estimated pulmonary artery pressure of 30-35
mmHg.
No prior study available for comparison.
Physical Exam
Vital Signs/Labs
Vital Signs
Temp Pulse Resp BP Pulse Ox
36.8 C 66 16 115/80 97
12/09/24 07:10 12/09/24 05:00 12/09/24 07:10 12/09/24 04:43 12/09/24 07:10
12/07/24 12/08/24 12/09/24
11:59 11:59 11:59
Actual Weight 103 kg 98.5 kg
12/09/24 04:48
12/09/24 04:48
APTT 137.6 Sec (23.4-35.0) H 12/07/24 11:16
Triglycerides 65 mg/dl (10-149) 12/08/24 02:31
LDL Cholesterol, Calc 96 mg/dl 12/08/24 02:31
VLDL Cholesterol, Calc 13 mg/dl (0-30) 12/08/24 02:31
HDL Cholesterol 41 mg/dl 12/08/24 02:31
LAB Results
12/07/24 12/07/24 12/07/24
00:05 03:00 03:15
Troponin I < 0.012 Cancelled Cancelled
12/07/24 12/07/24 12/07/24
03:30 11:16 15:14
Troponin I 11.200 H* D 29.300 H* D 16.400 H* D
12/07/24
17:14
Troponin I Cancelled
Physical Exam
Constitutional: No acute distress and Comfortable
EENT: Anicteric and Moist mucous membranes
Cardiovascular: Rhythm & rate is regular, Pedal edema is absent, JVD pressure is normal, S1S2 is normal and Murmur/rub/gallop absent
Respiratory: Respiratory effort normal, Lungs clear to auscul., Wheeze Absent, Crackles Absent and Rhonchi Absent
GI: Soft, Distention absent, Flat, Non tender and Normal bowel sounds
Neuro/Psych: AO x 3
Data Reviewed
-
Date of Service: December 09, 2024
Medical Decision Making: Reviewed Test Results, Independent Historian Assessment and Test Interpretation
EKG: Tracing Personally Visualized and interpreted and Report Reviewed by me
Echo: Tracing Personally Visualized and interpreted and Report Reviewed by me
X-Ray/CT/US/MRI/NUC/PET: Image Personally Visualized and interpreted and Report Reviewed by me
Medical Tests (PFT, Pathology etc): Image Personally Visualized and interpreted, Report Reviewed by me, Discussed with Patient and Discussed with Family
Labs: Labs Reviewed by me
Old Records: Reviewed
[2024-12-09] MEDS: ORETIC 25 MG PO (08:24)
[2024-12-09] MEDS: COREG 12.5 MG PO (08:25)
[2024-12-09] MEDS: ZESTRIL 20 MG PO (08:25)
[2024-12-09] MEDS: NORVASC 10 MG PO (08:25)
[2024-12-09] MEDS: ATIVAN 2 MG PO (09:13)
--- NOTE | 2024-12-09 09:17 | PTCARENOTE ---
Pt med with Ativan 2 mg PO as ordered, 1/2 hr prior to her MRI.
--- NOTE | 2024-12-09 10:56 | W.PN.HOSP.TC ---
Addendum entered and electronically signed by Raghav Stuart DO 12/09/24 15:17:
CDI: Nonischemic troponin elevation secondary to MINOCA
Original Note:
Today's Communication/Plan
-
Follow-up cardiac MRI
Possible discharge later if normal
Assessment / Plan
Assessment / Plan
#NSTEMI
-Secondary to MINOCA; differentials include focal myocarditis (viral versus immunogenic), microvascular ischemia, less likely vasospasm
-Presented with typical chest pain, troponin delta 11.2; nonischemic ECG; left heart cath on 12/07 without CAD, showed tortuous vessel
-Status post heparin drip; echocardiogram yesterday with preserved LVEF; [facility] with ventriculography did show lateral WMA
-Has remained chest pain-free since shortly after admission, troponin downtrending, telemetry without events
-Remains hemodynamically stable and on room air; pending cardiac MRI today
Plan
-Follow-up cardiac MRI
-Follow-up coxsackie viral testing
-Continue with home beta-maria luisa and ORAL inhibitor
-Telemetry
#HTN
-Home regimen includes atenolol, HCTZ, and amlodipine; atenolol switched to carvedilol here
-Per cardiology documentation, has history of resistant hypertension
-Blood pressure fairly well-controlled here
-Continue home regimen and monitor
#HLD
-Home regimen includes atorvastatin 80 mg nightly
-No known ASCVD history but is on highest dose statin
-Order FLP and A1c for tomorrow morning
-LDL near 90; LDL goal < 70
#Obesity
-BMI 34.5
-Encourage 30 minutes of aerobic exercise as tolerated daily
-Encourage Mediterranean style diet
DVT prophylaxis: Lovenox
Diet: Cholesterol-lowering
CODE STATUS: Full code
Disposition: Discharge with OP cardiology follow-up if cMRI unremarkable
Anticipated Discharge: Within 24 hours
Subjective/Interval History
-
Date of Service: December 09, 2024
Seen and examined at the bedside. No acute events reported overnight. AFVSS this morning
Had a headache yesterday which made her unable to tolerate the MRI. Repeat cardiac MRI today
She denies any new complaints. Continues to deny chest pain and anginal equivalents since admission
Objective Data
-
Labs:
Laboratory Results
12/09/24
04:48
WBC 4.0 L
Hgb 12.4
Hct 36.5 L
Plt Count 189
Sodium 138
Potassium 3.5
Chloride 100
Carbon Dioxide 35 H
BUN 18 H
Creatinine 0.8
Glucose 105 H
Calcium 9.6
Vital Signs:
Vital Signs
Temp Pulse Resp BP Pulse Ox
98.2 F 61 16 121/74 97
12/09/24 07:10 12/09/24 07:45 12/09/24 07:10 12/09/24 08:24 12/09/24 07:10
I&O
12/08/24 12/09/24 12/10/24
06:59 06:59 06:59
Intake Total 1056 / 1056 480 / 480
Balance 1056 / 1056 480 / 480
Review of Systems
-
History Source: Patient
All other systems: Reviewed and negative
Physical Exam
-
General: Well Developed, No Apparent Distress and Obese
HEENT: Normocephalic, Atraumatic and Moist Mucous Membranes
Respiratory: Clear to Auscultation and Non Labored Respirations
Cardiac: Regular Rhythm and S1/S2; Negative Murmur, Rub or Gallop
GI: Soft, Nontender, Nondistended and Normal Bowel Sounds
Musculoskeletal: No Clubbing, No Cyanosis and No Edema
Skin: Warm, Dry and Normal Turgor; Negative Rash
Neuro: AO x 3 and Nonfocal/Grossly Intact
Psych: Calm
Data Reviewed
-
MRI: Discussed with Physician (Automotive Engineering Technician)
Labs: Labs Reviewed by me and Discussed with Patient
[2024-12-09 11:20] VITALS: BP 114/82
--- NOTE | 2024-12-09 12:05 | PTCARENOTE ---
Addendum entered by Dunia Marley RN 12/09/24 12:07:
Pt returned at 11:15
Original Note:
Pt returned from MRI, she was able to tolerated the procedure today. She is still a bit drowsy from Ativan but responds and answers questions appropriately. VSS
--- NOTE | 2024-12-09 15:00 | PN.CDI ---
CDI
- -
CDI:
Physician Documentation Request
Admit Date: 12/07/24 06:15
Dear Doctor Narciso,
Patient admitted for troponin elevation.
12/08 Cardiology PN: 'Non-ischemic troponin elevation -Acute. -Cath shows normal coronary arteries. There is focal lateral hypokinesis on V-Gram. -Echocardiogram WNL.'
12/09 Hospitalist PN: 'NSTEMI -Secondary to MINOCA; differentials include focal myocarditis (viral versus immunogenic), microvascular ischemia, less likely vasospasm'
Please clarify the following regarding the documented troponin elevation:
Non-ischemic troponin elevation
NSTEMI
Other
Use of terms such as suspected, likely, concern for, or probable (associated with a specific diagnosis that is being evaluated, monitored, or treated as if it exists) are acceptable and can be coded in the inpatient setting, when documented at the
time of discharge.
Thank you,
Manisha Tavarez RN, BSN
CDI Specialist
Available via [place] text
Please use your independent medical judgment in providing your response.
--- NOTE | 2024-12-09 15:08 | PN.CDI ---
CDI
- -
CDI:
Physician Documentation Request
Admit Date: 12/07/24 06:15
Dear Doctor Narciso,
Patient admitted for troponin elevation.
12/08 Cardiology PN: 'Non-ischemic troponin elevation -Acute. -Cath shows normal coronary arteries. There is focal lateral hypokinesis on V-Gram. -Echocardiogram WNL.'
12/09 Hospitalist PN: 'NSTEMI -Secondary to MINOCA; differentials include focal myocarditis (viral versus immunogenic), microvascular ischemia, less likely vasospasm'
Please clarify the following regarding the documented troponin elevation:
Non-ischemic myocardial injury
NSTEMI
Other
Use of terms such as suspected, likely, concern for, or probable (associated with a specific diagnosis that is being evaluated, monitored, or treated as if it exists) are acceptable and can be coded in the inpatient setting, when documented at the
time of discharge.
Thank you,
Manisha Tavarez RN, BSN
CDI Specialist
Available via [place] text
Please use your independent medical judgment in providing your response.
[2024-12-09 15:26] VITALS: BP 109/72
[2024-12-09] MEDS: LOVENOX SC (17:52)
[2024-12-09] MEDS: LIPITOR 80 MG PO (17:52)
--- NOTE | 2024-12-10 14:24 | W.DCSUMMARY ---
Discharge Summary
Discharge Data
Date of Admission: 12/07/24
Date of Discharge: 12/09/24
Total time spent discharging patient (in min): 37 minutes
-
Pending Results: Yes
Additional Pending Results:
Coxsackie A and B viral serology
Hospital Course
Discharging Physician : Raghav Stuart DO
Disposition : Home
Principal Discharge diagnosis : Nonischemic myocardial infarction (MINOCA), suspected focal myocarditis
Chronic Discharge diagnosis : HTN, HLD, GERD, obesity
Hospital Course : 59-year-old female that presented to the hospital with typical anginal chest pain. Initial high-sensitivity troponin was mildly elevated however significantly up trended to >30 prior to downtrending. Initial ECGs without any
ischemic findings or STEMI equivalents. Was started on heparin drip for presumed NSTEMI prior to being taken to [facility] where she had [facility] with coronary angiography and ventriculography. Ventriculography showed evidence of lateral wall motion
abnormality however coronary angiography was without any significant coronary plaques or obstructions. Angiography did demonstrate tortuous coronary vasculature. Following her angiography she was taken off of heparin drip. Continued with home
regimen of beta-maria luisa, atorvastatin, ORAL inhibitor. She was previously on atenolol however this was transition to carvedilol by public health sanitarian. Resumed on amlodipine and hydrochlorothiazide to complete her antihypertensive regimen. She had
cardiac MRI performed on 12/09/2024 that did show subendocardial enhancement in the lateral wall near site of her wall motion abnormality on ventriculography that was consistent with focal myocarditis versus infiltrative disease. She remained chest
pain-free throughout the majority of her hospital course. No events were seen on telemetry while hospitalized. At time of discharge was provided with cardiology referral for outpatient follow-up.
Important imaging findings :
MR Card MRI Morph & Funct w/ + w/o (12/09/24)
CLINICAL INDICATION: Left-sided substernal chest pain. Troponin elevation. Non-ST elevated myocardial infarction. Hypertension. Hyperlipidemia. Cardiac infiltration.
TECHNIQUE: A cardiac MRI examination of the heart was performed with and without intravenous contrast on a 1.5 Teri magnet. Axial single shot Black blood inversion recovery, coronal balanced, multislice multiphase cine balanced images in the
short-axis and four-chamber views, and short-axis black blood fat-suppressed sequences were obtained prior to the administration of intravenous contrast. Following the intravenous administration of 20 mL Gadavist gadolinium contrast material,
postcontrast delayed inversion recovery 'scar' imaging was performed in the 3 cardiac axes (short-axis, long-axis, and four-chamber planes). Quantitative analysis was performed from the cine multislice multiphase balanced images.
COMPARISON: Comparison is made with radiographic examinations of the chest performed 12/07/2024 and 07/29/2021.
Cardiac Catheterization 12/07/2024: No coronary artery disease. Normal left ventricular size with hypokinesis of the lateral wall and left ventriculography but preserved Global systolic function. Left ventricular ejection fraction 65%.
Echocardiogram 12/07/2024: Left ventricular ejection fraction 60-65%. No regional wall motion abnormalities. Mild concentric left ventricular hypertrophy. Normal right ventricular size and function. Moderate tricuspid regurgitation. Mild mitral
regurgitation.
FINDINGS:
LEFT VENTRICULAR MEASUREMENTS:
Ejection Fraction: 60% (normal: 60-80%)
Stroke Volume: 70.3 mL (normal 59.0-112.0 mL)
Cardiac Output: 5.1 L/min (normal 4.2-8.1 L/min)
Stroke Index: 31.7 mL/m2 (normal 36.0-60.0 mL/m2)
Cardiac Index: 2.3 L/min/m2 (normal 2.6-4.3 L/min/m2)
End Diastolic Volume: 117.5 mL (normal 90.0-162.0 mL)
End-Systolic Volume: 47.2 mL (normal 20.0-48.0 mL)
Indexed End Diastolic Volume: 53.0 mL/m2 (normal 50.0-82.0 mL/m2)
Indexed End Systolic Volume: 21.3 mL/m2 (normal 11.0-27.0 mL/m2)
End-Diastolic Wall Mass: 101.8 g (normal 41.0-83.0 g)
End-Diastolic Wall Plus Papillary Mass: 131.4 g (normal 41.0-83.0 g)
Indexed End-Diastolic Wall Mass: 45.9 sq m (normal 25.0-44.0 g/sq m)
Indexed End-Diastolic Wall Plus Papillary Mass: 59.2 g/sq m (normal 25.0-44.0 g/sq m)
Left Ventricular Myocardium T1 [place]: 1022 ms
Left Ventricular Myocardium Extracellular Volume: 27.6%
Left Ventricular Myocardium T2*: 43.2 ms
VALVE DISEASE
AORTIC VALVE: No stenosis or regurgitation.
Aortic forward volume: 69.80 mL
Aortic regurgitant volume: 1.81 mL
Aortic regurgitant fraction: 2.59%
MITRAL VALVE: Mild regurgitation.
TRICUSPID VALVE: Mild regurgitation.
PULMONARY VALVE: No stenosis or regurgitation.
Pulmonary forward volume: 61.08 mL
Pulmonary regurgitant volume: 0.21 mL
Pulmonary regurgitant fraction: 0.34%
Ascending aorta diameter: 36.34 mm
Left atrial dimensions (AP x 4-chamber): 38.74 mm
Left Ventricular Wall Thickness measurements during end diastole:
Left Ventricular Anterior Wall: 10.32 mm
Left Ventricular Anterolateral Wall: 7.94 mm
Left Ventricular Inferolateral Wall: 8.18 mm
Left Ventricular Inferior Wall: 8.19 mm
Left Ventricular Inferoseptal Wall: 10.37 mm
Left Ventricular Anteroseptal Wall: 10.72 mm
LEFT VENTRICLE REGIONAL WALL MOTION: No left ventricular wall motion abnormality.
{0 = normokinetic, 1 = hypokinetic, 2 = akinetic, 3 = dyskinetic}
BASE
Anterior: 0
Anterolateral: 0
Inferolateral: 0
Inferior: 0
Inferoseptal: 0
Anteroseptal: 0
MID
Anterior: 0
Anterolateral: 0
Inferolateral: 0
Inferior: 0
Inferoseptal: 0
Anteroseptal: 0
APEX
Anterior: 0
Lateral: 0
Inferior: 0
Septum: 0
True apex: 0
There is hyperintense STIR signal intensity in the anterolateral wall the left mid ventricle and in the lateral wall of the left ventricular apex.
LEFT VENTRICLE MYOCARDIAL ENHANCEMENT: There is a large segment of subendocardial enhancement in the anterolateral wall of the left mid ventricle measuring 3.4 x 2.0 cm in size which involves 50-75% of the myocardial thickness. There is a small
amount of enhancement in the inferior wall of the left ventricular apex involving 25-50% of the myocardial thickness. There is no MRI evidence for abnormal enhancement in the septal wall, anterior wall, or true apex of the left ventricle.
(0 = none, 1 = 1-25%, 2 = 26-50%, 3 = 51-75%, 4 = 76-100%)
BASE
Anterior: 0
Anterolateral: 0
Inferolateral: 0
Inferior: 0
Inferoseptal: 0
Anteroseptal: 0
MID
Anterior: 0
Anterolateral: 3
Inferolateral: 0
Inferior: 0
Inferoseptal: 0
Anteroseptal: 0
APEX
Anterior: 0
Lateral: 0
Inferior: 2
Septum: 0
True apex: 0
PERICARDIUM: No pericardial effusion, pericardial thickening, or abnormal pericardial enhancement.
PLEURA: No pleural effusions.
IMPRESSION:
1. Large amount of FOCAL SUBENDOCARDIAL ENHANCEMENT in the ANTEROLATERAL WALL of the LEFT MID VENTRICLE which likely corresponds to the focal region of hypokinesis seen on left ventriculography performed 12/07/2024. No current regional wall motion
abnormality associated with this focal region of enhancement. Diagnostic possibilities are (1) acute focal myocarditis, (2) acute myocardial infarction, or (3) less likely a diffuse infiltrative cardiomyopathy such as cardiac sarcoidosis or
amyloidosis given the absence of other supportive findings.
2. Global systolic LV function: Normal.
3. Global systolic RV function: Normal.
4. Valvular disease: (1) Mild mitral regurgitation. (2) Mild tricuspid regurgitation.
Procedure findings :
CARDIAC CATHETERIZATION REPORT (12/07/24)
INDICATION: Non-ST elevation myocardial infarction.
PROCEDURE:
1. Left heart catheterization.
2. Coronary angiography.
3. Left ventriculography.
A total of 16 minutes of procedural/moderate sedation was utilized. An independent medical unit secretary was present to assist with and help manage the patient's level of consciousness and physiologic status.
ACCESS:
1. 6 Thai right rate artery using a modified Seldinger technique.
CATHETERS:
1. 5 Thai JR4.
2. 5 Thai JL 3.5.
3. 6 Thai angled pigtail.
HEMODYNAMIC DATA
Weight (kg): 103.0
AO (s/d/x, mmHg): 126/87/104
LV (s/x mmHg): 126/15
LEFT VENTRICULOGRAPHY: Performed in an [place] projection. Normal left ventricular size. There is hypokinesis of the lateral wall with preserved global systolic function. Left ventricular ejection fraction estimated at 65%. There is no mitral valve
regurgitation. There is no aortic valve insufficiency. The aortic root and visualized ascending and descending aorta appear normal.
CORONARY ANGIOGRAPHY
Dominance: Right.
Left Main: Large size, bifurcating vessel. There is no coronary artery disease.
LAD: Large size vessel giving rise to 2 significant diagonals before wrapping around the apex. There is moderate to severe tortuosity of the apical LAD. There is no coronary artery disease.
Ramus:Congenitally absent.
Circumflex: Normal size, nondominant vessel giving rise to 1 large obtuse marginal. Both the AV groove circumflex and the obtuse marginal are severely tortuous. There is no coronary artery disease.
RCA: Normal size, dominant vessel with an anterior origin. There is moderate tortuosity of the mid vessel. There is no coronary artery disease.
INTERVENTION(S)
None.
Closure Device: Vascular band.
Radiation (mGy): 409.43
DAP (cm2.Gy): 37.8677
Fluoroscopy time (minutes):3.3
CONCLUSIONS
1. Right dominant circulation with tortuosity of the mid RCA as well as the distal LAD and the entire circumflex system with no coronary artery disease.
2. Normal left ventricular size with hypokinesis of the lateral wall on left ventriculography but preserved global systolic function. Left ventricular ejection fraction estimated at 65%.
3. Normal filling pressures (LVEDP = 15 mmHg at 1 to 3.0 kg).
4. Focal hypokinesis combined with significant troponin elevation raises the possibility of focal myocarditis.
RECOMMENDATIONS:
1. Expectant management after cardiac catheterization via right radial approach.
2. Limited weight bearing on the right wrist for one week.
3. GDMT as hemodynamics will tolerate.
4. Cardiac MRI to evaluate for focal myocarditis, possible infiltrative disease.
Discharge Plan
-
Patient Disposition: Home (Routine Discharge)
Discharge Diagnosis/Procedures: Cardiac catheterization
Nonischemic myocardial injury (suspected focal myocarditis)
Condition: Fair
Diet: No added salt
Activity: As tolerated
Driving Restrictions: Not until seen by your Dr
Bathing Restrictions: None
Blood Work: None
Others Tests: None
Activity Restrictions/Additional Instructions:
Schedule follow-up appointment with your family physician. Should be seen in office within 1 to 2 weeks of discharge from the hospital
Attend follow-up appointment with cardiology at 1 PM on 12/28/2024
Instructions: Chest pain
Stand Alone Forms: DC Instructions- Cath/EP Lab
Referrals:
Jennifer Nur MD [Family Provider] -
Carmen Au CRNP [Specified Professional Personl] - 12/28/24 1:00 pm
Additional Discharge Medication Instructions: Stop taking atenolol
Start carvedilol 12.5 mg twice daily
Increased amlodipine to 10 mg daily
Reduced lisinopril to 20 mg daily
Continue taking hydrochlorothiazide as previously prescribed
Avoid NSAIDs (ibuprofen, naproxen, meloxicam�) And use OTC Tylenol for mild pain
Prescriptions:
New
carvedilol 12.5 mg Tablet
12.5 mg PO BID 30 Days Qty: 60 0RF
amlodipine 10 mg Tablet
10 mg PO DAILY 30 Days Qty: 30 0RF
lisinopril 20 mg Tablet
20 mg PO DAILY 30 Days Qty: 30 0RF
Continued
atorvastatin 80 mg Tablet
80 mg PO QPM
acetaminophen 500 mg Tablet
1,000 mg PO Q6H PRN (Reason: mild pain)
hydrochlorothiazide 25 mg Tablet
25 mg PO DAILY
Discontinued
ibuprofen 800 mg Tablet
800 mg PO DAILYPRN PRN (Reason: mild pain)
atenolol 100 mg Tablet
100 mg PO DAILY
amlodipine 5 mg Tablet
5 mg PO DAILY
lisinopril 40 mg Tablet
40 mg PO DAILY
Discharge Orders:
Discharge Patient (As Directed); Ordered 12/09/24
Ordered By: Luis Eduardo Pepper
Care Plan Goals
Care Plan Goals:
Problem: Readiness for enhanced knowledge related to diagnosis and treatment plan
Goal: Understand your diagnosis and treatment plan needs, including medications if applicable.
Instructions: Know your diagnosis, underlying causes and treatment plan options, including medications if applicable. Consult with your health care team to learn about your diagnosis and treatment plan, including medications if applicable.
Discharge Date and Time
Discharge Date/Time: 12/09/24 18:25
Print Language: ALBANIAN
[2024-12-11 00:25] LABS: Coxsackie A9 <1:8 (<1:8)
== END 2024-12-09 18:25 | disposition home or self-care (01) | DRG 287 ==
LOC: IVU 06:15
PROVIDERS: Student in an Organized Health Care Education/Training Program; ADMITTING PHYSICIAN Internal Medicine; ATTENDING PHYSICIAN Internal Medicine; EMERGENCY PHYSICIAN Student in an Organized Health Care Education/Training Program; FAMILY PHYSICIAN Family Medicine; OTHER PHYSICIAN Internal Medicine Cardiovascular Disease
PROC: B2151ZZ Fluoroscopy of Left Heart using Low Osmolar Contrast (ICD-10-PCS; 2024-12-07)
PROC: B2111ZZ Fluoroscopy of Multiple Coronary Arteries using Low Osmolar Contrast (ICD-10-PCS; 2024-12-07)
PROC: 4A023N7 Measurement of Cardiac Sampling and Pressure, Left Heart, Percutaneous Approach (ICD-10-PCS; 2024-12-07)
DX: Q24.5 Malformation of coronary vessels (principal); I5A Non-ischemic myocardial injury (non-traumatic); I10 Essential (primary) hypertension; E78.00 Pure hypercholesterolemia, unspecified; K21.9 Gastro-esophageal reflux disease without esophagitis; E66.9 Obesity, unspecified; Z68.33 Body mass index [BMI] 33.0-33.9, adult
CPT/HCPCS: 71046; 75561; 80048; 80053; 80061; 83036; 84484; 85025; 85027; 85730; 86658; 93005; 93306; 93458; 97162; 99152; A9585; C1894; Q9967